=== PATIENT | male | born 1970 | race Caucasian/White ===

== ENCOUNTER 2016-08-30 21:09 | Outpatient (CLI) | payer OTHER | END 2016-08-30 21:10 | disposition short-term general hospital (02) | DX: R07.9 Chest pain, unspecified (principal); R68.84 Jaw pain | CPT/HCPCS: A0170; A0425; A0427 ==

== ENCOUNTER 2016-10-02 14:11 | Outpatient (CLI) | payer OTHER | END 2016-10-02 14:12 | disposition EMS.NT | DX: R00.0 Tachycardia, unspecified (principal) ==

== ENCOUNTER 2020-06-20 10:51 | Outpatient (CLI) | payer OTHER | END 2020-06-20 10:52 | disposition critical access hospital (66) | LOC: EMS 10:51 | PROVIDERS: ATTEND Surgery | DX: R00.0 Tachycardia, unspecified (principal); R42 Dizziness and giddiness | CPT/HCPCS: A0425; A0427 ==

== ENCOUNTER 2020-06-20 11:25 | Emergency (ER) | payer OTHER ==
[2020-06-20 12:03] LABS: BASOPHILS # (AUTO) 0.1 10^3/uL (0.0-0.1); BASOPHILS % (AUTO) 0.6 %; EOSINOPHILS # (AUTO) 0.2 10^3/uL (0.0-0.7); EOSINOPHILS % (AUTO) 1.5 %; HGB - HEMOGLOBIN 15.8 g/dL (14.0-18.0); LYMPHOCYTES # (AUTO) 3.2 10^3/uL (1.5-3.5); MEAN CORPUSCULAR HGB CONC 33.3 g/dL (32.0-36.0); MEAN CORPUSCULAR VOLUME 83.9 fL (80.0-94.0); MEAN PLATELET VOLUME 10.1 fL (7.4-11.4); MONOCYTES # (AUTO) 0.8 10^3/uL (0.0-1.0); MONOCYTES % (AUTO) 7.1 %; NEUTROPHILS # (AUTO) 7.5 10^3/uL (1.5-6.6); NEUTROPHILS % (AUTO) 63.5 %; PLT - PLATELET COUNT 275 10^3/uL (130-450); RED BLOOD COUNT 5.65 10^6/uL (4.70-6.10); RED CELL DISTRIBUTION WIDTH 13.1 % (12.0-15.0); WHITE BLOOD COUNT 11.8 x10^3/uL (4.8-10.8)
--- NOTE | 2020-06-20 12:08 | XRAY Report ---
PROCEDURE: Chest 1 View X-Ray INDICATIONS: Chest Pain TECHNIQUE: One view of the chest was acquired. COMPARISON: None. FINDINGS: Surgical changes and devices: None. Lungs and pleura: No pleural effusions or pneumothorax. Lungs are clear. Mediastinum: Mediastinal contours appear normal. Heart size is normal. Bones and chest wall: No suspicious bony lesions. Overlying soft tissues appear unremarkable. IMPRESSION: No acute cardiopulmonary disease. Reviewed by: Den Paris MD on 06/20/2020 12:07 PM [facility] Approved by: Den Paris MD on 06/20/2020 12:07 PM [facility] Station ID: [id number]
[2020-06-20 12:29] LABS: ALBUMIN/GLOBULIN RATIO 1.3 (1.0-2.2); BILIRUBIN,TOTAL 0.6 mg/dL (0.2-1.0); CALCIUM 9.5 mg/dL (8.5-10.3); CREATININE 1.1 mg/dL (0.6-1.2); TOTAL PROTEIN 7.2 g/dL (6.7-8.2)
--- NOTE | 2020-06-20 13:47 | ED Physician Documentation ---
History of Present Illness - Stated complaint Stated Complaint: HIGH HR - Chief complaint Chief Complaint: Cardiac - History obtained from History obtained from: Patient, EMS - Additonal information Additional information: 50-year-old man with past medical history of SVT presents with tachycardia from home, found to be in svt. He received adenosine 6 mg with successful conversion to sinus rhythm on route. Patient states that he woke up feeling normal and then went into what he felt was SVT while sitting at rest. He tried his own vagal maneuvers which have worked for him in the past but was unsuccessful so he called 911. Patient denies any symptoms at present, stating that he feels back to normal after getting adenosine. He also denies having symptoms prior to onset of the palpitations. Review of Systems Ten Systems: 10 systems reviewed and negative Constitutional: denies: Fever, Chills, Myalgias Eyes: denies: Loss of vision Ears: denies: Tinnitus/ringing Cardiac: reports: Palpitations. denies: Chest pain / pressure Respiratory: denies: Dyspnea, Cough GI: denies: Nausea PD PAST MEDICAL HISTORY - Past Medical History Past Medical History: Yes Cardiovascular: Hypertension, High cholesterol, Atrial fibrillation, Arrhythmia Respiratory: None Neuro: Migraines, Peripheral neuropathy Endocrine/Autoimmune: Type 2 diabetes GI: Hiatal hernia : Kidney stones HEENT: Chronic hearing loss Psych: None Musculoskeletal: Osteoarthritis, Fibromyalgia, Fatigue, Other Derm: None Other Past Medical History: DJD - Past Surgical History Past Surgical History: Yes Ortho: Arthroscopic surgery - Present Medications Home Medications: Ambulatory Orders Medication Instructions Recorded Confirmed Atorvastatin Calcium mg PO HS 06/20/20 Cyclobenzaprine [Flexeril] 10 mg PO TID PRN 06/20/20 06/20/20 Insulin Glargine [Lantus Solostar] 60 unit SQ HS 06/20/20 06/20/20 Metoprolol Succinate [Toprol Xl] mg PO BID 06/20/20 Spironolactone [Aldactone] 25 mg PO DAILY 06/20/20 06/20/20 allopurinoL [Zyloprim] 500 mg PO DAILY 06/20/20 06/20/20 metFORMIN [Glucophage] 500 mg PO BIDWM 06/20/20 06/20/20 oxyCODONE/ACET 5/325 [Percocet 5 2 each PO Q6H 06/20/20 06/20/20 mg/325 mg] - Allergies Allergies/Adverse Reactions: Allergies Allergy/AdvReac Type Severity Reaction Status Date / Time No Known Drug Allergies Allergy Verified 06/20/20 11:35 - Social History Does the pt smoke?: No Smoking Status: Former smoker Does the pt drink ETOH?: No Does the pt have substance abuse?: No - Immunizations Immunizations are current?: Yes PD ED PE NORMAL - Vitals Vital signs reviewed: Yes - General General: Alert and oriented X 3 - HEENT HEENT: Atraumatic, PERRL, EOMI, Pharynx benign - Neck Neck: Supple, no meningeal sign - Cardiac Cardiac: RRR - Respiratory Respiratory: No respiratory distress, Clear bilaterally - Abdomen Abdomen: Non tender, Non distended - Male Male : Deferred - Rectal Rectal: Deferred - Back Back: No spinal TTP - Derm Derm: Normal color - Extremities Extremities: No edema - Neuro Neuro: Alert and oriented X 3 - Psych Psych: Normal mood, Normal affect Results - Vitals Vitals: Vital Signs - 24 hr 06/20/20 06/20/20 11:35 12:12 Temperature 36.8 C Heart Rate 103 H 92 Respiratory 20 16 Rate Blood Pressure 176/119 H 138/103 H O2 Saturation 96 98 Oxygen O2 Source Room air - EKG (time done) 1129 Rate: Rate (enter#) (101) Rhythm: Sinus tachycardia - Labs Labs: Laboratory Tests 06/20/20 06/20/20 06/20/20 11:55 11:55 11:55 WBC 11.8 H RBC 5.65 Hgb 15.8 Hct 47.4 MCV 83.9 MCH 28.0 MCHC 33.3 RDW 13.1 Plt Count 275 MPV 10.1 Neut # (Auto) 7.5 H Lymph # (Auto) 3.2 [place] # (Auto) 0.8 Eos # (Auto) 0.2 Baso # (Auto) 0.1 Absolute Nucleated RBC 0.00 Nucleated RBC % 0.0 Sodium 136 Potassium 4.0 Chloride 101 Carbon Dioxide 20 L Anion Gap 15.0 H BUN 22 H Creatinine 1.1 Estimated GFR (MDRD) 70 L Glucose 269 H Calcium 9.5 Total Bilirubin 0.6 AST 25 ALT 28 Alkaline Phosphatase 74 Troponin I High Sens 5.7 Total Protein 7.2 Albumin 4.0 Globulin 3.2 Albumin/Globulin Ratio 1.3 Lipase 29 PD MEDICAL DECISION MAKING - ED course Complexity details: reviewed results, d/w patient ED course: 50-year-old man with history of SVT presented in SVT, converted to sinus rhythm by EMS. Patient now asymptomatic. Normal work-up. He will follow up with his doctor at [facility] this week. Strict return precautions given. Departure - Departure Disposition: Home, Self Care Clinical Impression: SVT (supraventricular tachycardia), Palpitations Condition: Good Instructions: Understanding Supraventricular Tachycardia SVT Comments: You were seen in the emergency department for SVT. You were given adenosine by EMS with resolution of your SVT. You Are now in a normal rhythm. Your EKG looked good. Your lab work looked good. Your chest x-ray was normal. Return to the ED for any new or worsening symptoms. Follow-up with your environmental technician and with your [facility].
[2020-06-20 13:51] VITALS: BP 134/115
== END 2020-06-20 14:03 | disposition home or self-care (01) ==
LOC: EDUNIT# → ED 11:25
DX: I47.1 Supraventricular tachycardia (principal); I10 Essential (primary) hypertension; E11.42 Type 2 diabetes mellitus with diabetic polyneuropathy; Z79.4 Long term (current) use of insulin; Z87.891 Personal history of nicotine dependence
CPT/HCPCS: 36415; 80053; 83690; 84484; 85025; 93005; 99284; 99285

== ENCOUNTER 2020-07-13 19:26 | Outpatient (CLI) | payer OTHER | END 2020-07-13 19:27 | disposition critical access hospital (66) | LOC: EMS 19:26 | PROVIDERS: ATTEND Surgery | DX: R00.0 Tachycardia, unspecified (principal); R07.89 Other chest pain; R11.0 Nausea; R61 Generalized hyperhidrosis; R06.02 Shortness of breath | CPT/HCPCS: A0425; A0427 ==

== ENCOUNTER 2020-07-13 19:59 | Emergency (ER) | payer OTHER ==
[2020-07-13] MEDS ORDERED: KETOROLAC 30 MG/ML VIAL IVP STA (20:39)
[2020-07-13 20:41] LABS: BASOPHILS # (AUTO) 0.1 10^3/uL (0.0-0.1); BASOPHILS % (AUTO) 0.6 %; EOSINOPHILS # (AUTO) 0.3 10^3/uL (0.0-0.7); EOSINOPHILS % (AUTO) 2.3 %; HGB - HEMOGLOBIN 15.3 g/dL (14.0-18.0); LYMPHOCYTES # (AUTO) 2.7 10^3/uL (1.5-3.5); LYMPHOCYTES % (AUTO) 25.4 %; MEAN CORPUSCULAR HEMOGLOBIN 28.3 pg (27.0-31.0); MEAN CORPUSCULAR HGB CONC 33.3 g/dL (32.0-36.0); MEAN PLATELET VOLUME 10.5 fL (7.4-11.4); MONOCYTES # (AUTO) 0.7 10^3/uL (0.0-1.0); MONOCYTES % (AUTO) 6.6 %; NEUTROPHILS % (AUTO) 64.8 %; PLT - PLATELET COUNT 274 10^3/uL (130-450); RED BLOOD COUNT 5.41 10^6/uL (4.70-6.10); RED CELL DISTRIBUTION WIDTH 13.2 % (12.0-15.0); WHITE BLOOD COUNT 10.7 x10^3/uL (4.8-10.8)
[2020-07-13 20:52] LABS: ALBUMIN/GLOBULIN RATIO 1.3 (1.0-2.2); BILIRUBIN,TOTAL 0.7 mg/dL (0.2-1.0); CALCIUM 9.4 mg/dL (8.5-10.3); CREATININE 1.3 mg/dL (0.6-1.2); MAGNESIUM 1.5 mg/dL (1.7-2.8); TOTAL PROTEIN 7.1 g/dL (6.7-8.2)
[2020-07-13] MEDS: ONDANSETRON 4 MG/2 ML VIAL IVP STA ×2 (20:53→20:56)
--- NOTE | 2020-07-13 21:40 | ED Physician Documentation ---
History of Present Illness - Stated complaint Stated Complaint: SVT - Chief complaint Chief Complaint: Cardiac - History obtained from History obtained from: Patient, EMS - History of Present Illness Timing: Today Pain level now: 0 Improved by: adenosine Worsened by: no exacerbating factors - Treatment prior to arrival Treatment prior to arrival: zofran, adenosine - Additonal information Additional information: BIBA. Patient called 911 tonight due to sudden onset rapid palpitations while at home at rest which he recognized as previous episodes of SVT. He tried vagal maneuvers without change in symptoms and thus called 911. Given adenosine 6mg IV rapid push followed by second dose 6mg adenosine; he had resolution of SVT with the second dose and arrives to ED with ST 100s. Also given zofran in field for nausea which has resolved. Patient says referral to cardiology is in the works but that he has not yet seen one. T+R from this ED 06/20 for similar presentation, resolved after 6mg adenosine. Rhythm strips provided from EMS (recorded during tonearnest's transport to ED) show regular, narrow-complex rhythm 184 bpm. Review of Systems Constitutional: denies: Fever, Chills, Sweats Cardiac: reports: Palpitations. denies: Chest pain / pressure, Pedal edema, Calf pain Respiratory: reports: Reviewed and negative GI: reports: Nausea, Vomiting (resolved). denies: Abdominal Pain PD PAST MEDICAL HISTORY - Past Medical History Past Medical History: Yes Cardiovascular: Hypertension, High cholesterol, Atrial fibrillation, Arrhythmia Respiratory: None Neuro: Migraines, Peripheral neuropathy Endocrine/Autoimmune: Type 2 diabetes GI: Hiatal hernia : Kidney stones HEENT: Chronic hearing loss Psych: None Musculoskeletal: Osteoarthritis, Fibromyalgia, Fatigue, Other Derm: None - Past Surgical History Past Surgical History: Yes Ortho: Arthroscopic surgery - Present Medications Home Medications: Ambulatory Orders Medication Instructions Recorded Confirmed Atorvastatin Calcium 40 mg PO HS 06/20/20 07/13/20 Cyclobenzaprine [Flexeril] 10 mg PO TID PRN 06/20/20 07/13/20 Insulin Glargine [Lantus Solostar] 60 unit SQ HS 06/20/20 07/13/20 Metoprolol Succinate [Toprol Xl] 50 mg PO BID 06/20/20 07/13/20 Spironolactone [Aldactone] 25 mg PO DAILY 06/20/20 07/13/20 allopurinoL [Zyloprim] 500 mg PO DAILY 06/20/20 07/13/20 metFORMIN [Glucophage] 500 mg PO BIDWM 06/20/20 07/13/20 oxyCODONE/ACET 5/325 [Percocet 5 2 each PO Q6H 06/20/20 07/13/20 mg/325 mg] - Allergies Allergies/Adverse Reactions: Allergies Allergy/AdvReac Type Severity Reaction Status Date / Time No Known Drug Allergies Allergy Verified 06/20/20 11:35 - Social History Does the pt smoke?: No Smoking Status: Never smoker Does the pt drink ETOH?: No Does the pt have substance abuse?: No - Immunizations Immunizations are current?: Yes - POLST Patient has POLST: No PD ED PE NORMAL - Vitals Vital signs reviewed: Yes - General General: Alert and oriented X 3, No acute distress, Well developed/nourished - HEENT HEENT: Moist mucous membranes - Neck Neck: Supple, no meningeal sign - Cardiac Cardiac: RRR, No murmur, No gallop, No rub - Respiratory Respiratory: No respiratory distress, Clear bilaterally - Abdomen Abdomen: Soft, Non tender - Extremities Extremities: No edema - Neuro Neuro: Alert and oriented X 3 Results - Vitals Vitals: Vital Signs - 24 hr 07/13/20 07/13/20 07/13/20 20:10 20:14 22:00 Temperature 37.2 C 37.2 C 36.7 C Heart Rate 107 H 110 H 98 Respiratory 16 16 16 Rate Blood Pressure 132/106 H 132/106 H 156/108 H O2 Saturation 96 96 97 Oxygen O2 Source Room air - EKG (time done) No standard instances Rate: Rate (enter#) (107) Rhythm: Sinus tachycardia, LAE [place]: Normal Intervals: Normal [place] QRS: Normal Ischemia: Normal ST segments - Labs Labs: Laboratory Tests 07/13/20 07/13/20 20:27 20:27 WBC 10.7 RBC 5.41 Hgb 15.3 Hct 46.0 MCV 85.0 MCH 28.3 MCHC 33.3 RDW 13.2 Plt Count 274 MPV 10.5 Neut # (Auto) 7.0 H Lymph # (Auto) 2.7 [place] # (Auto) 0.7 Eos # (Auto) 0.3 Baso # (Auto) 0.1 Absolute Nucleated RBC 0.00 Nucleated RBC % 0.0 Sodium 137 Potassium 3.8 Chloride 103 Carbon Dioxide 21 Anion Gap 13.0 BUN 21 H Creatinine 1.3 H Estimated GFR (MDRD) 58 L Glucose 242 H Calcium 9.4 Magnesium 1.5 L Total Bilirubin 0.7 AST 25 ALT 29 Alkaline Phosphatase 73 Total Protein 7.1 Albumin 4.0 Globulin 3.1 Albumin/Globulin Ratio 1.3 PD MEDICAL DECISION MAKING - ED course Complexity details: reviewed old records, reviewed results, re-evaluated patient, considered differential, d/w patient ED course: no imaging performed tonight, as patient had CXR as part of his w/u 06/20/20 in this ED for same presentation. He is given 800mg magnesium oxide for mild hypomagnesemia. He has mild hyperglycemia but has not yet taken his evening diabetic medication(s). He arrived initially c/o headache, given IV toradol with excellent relief of his headache. He is asymptomatic at time of discharge. Departure - Departure Disposition: 01 Home, Self Care Clinical Impression: SVT (supraventricular tachycardia), Hypomagnesemia Condition: Good Instructions: ED Tachycardia Pat PSVT Follow-Up: Braulio Lockwood MD [Primary Care Provider] - Comments: Contact your primary care provider. They might recommend recheck of your low m agnesium level (minimally elevated in emergency department). More importantly, you might benefit from seeing a tape coater, which is a cardiology subsecialist that can advise you whether or not you are a candidate for ablation (the procedure we discussed which can help some patients with recurrent SVT). Discharge Date/Time: 07/13/20 22:08
[2020-07-13] MEDS ORDERED: MAGNESIUM OXIDE 400 MG TABLET PO SCH (22:00)
[2020-07-13 22:01] VITALS: BP 156/108
== END 2020-07-13 22:08 | disposition home or self-care (01) ==
LOC: EDUNIT# → ED 19:59
DX: I47.1 Supraventricular tachycardia (principal); E83.42 Hypomagnesemia; R51.9 Headache, unspecified; R11.0 Nausea; I10 Essential (primary) hypertension; E11.42 Type 2 diabetes mellitus with diabetic polyneuropathy; Z79.4 Long term (current) use of insulin
CPT/HCPCS: 36415; 80053; 83735; 85025; 93005; 99284; A9270

== ENCOUNTER 2021-11-30 12:50 | Outpatient (CLI) | payer OTHER | END 2021-11-30 12:51 | disposition critical access hospital (66) | LOC: EMS 12:50 | DX: R10.31 Right lower quadrant pain (principal); R11.2 Nausea with vomiting, unspecified | CPT/HCPCS: A0425; A0427 ==

== ENCOUNTER 2021-11-30 13:28 | Emergency (ER) | payer OTHER ==
[2021-11-30 13:49] LABS: BASOPHILS # (AUTO) 0.1 10^3/uL (0.0-0.1); BASOPHILS % (AUTO) 0.7 %; EOSINOPHILS # (AUTO) 0.1 10^3/uL (0.0-0.7); EOSINOPHILS % (AUTO) 0.9 %; HCT - HEMATOCRIT 45.1 % (42.0-52.0); HGB - HEMOGLOBIN 14.8 g/dL (14.0-18.0); LYMPHOCYTES # (AUTO) 2.2 10^3/uL (1.5-3.5); LYMPHOCYTES % (AUTO) 17.6 %; MEAN CORPUSCULAR HGB CONC 32.8 g/dL (32.0-36.0); MEAN CORPUSCULAR VOLUME 85.3 fL (80.0-94.0); MEAN PLATELET VOLUME 10.2 fL (7.4-11.4); MONOCYTES # (AUTO) 0.6 10^3/uL (0.0-1.0); MONOCYTES % (AUTO) 4.9 %; NEUTROPHILS # (AUTO) 9.2 10^3/uL (1.5-6.6); NEUTROPHILS % (AUTO) 75.4 %; PLT - PLATELET COUNT 276 10^3/uL (130-450); RED BLOOD COUNT 5.29 10^6/uL (4.70-6.10); RED CELL DISTRIBUTION WIDTH 13.4 % (12.0-15.0); WHITE BLOOD COUNT 12.2 x10^3/uL (4.8-10.8)
[2021-11-30] MEDS ORDERED: HYDROmorphone 1 MG/ML CARPUJECT IVP STA (13:55)
[2021-11-30] MEDS ORDERED: ONDANSETRON 4 MG/2 ML VIAL IVP STA (13:55)
[2021-11-30] MEDS ORDERED: SODIUM CHLORIDE 0.9% 1,000 ML IV STA (13:55)
--- NOTE | 2021-11-30 13:58 | ED Physician Documentation ---
History of Present Illness - Stated complaint Stated Complaint: ABD PX - Chief complaint Chief Complaint: Abd Pain - Additonal information Additional information: 51-year-old male presents emergency department for evaluation of acute onset ri ght flank pain with radiation to the right lower quadrant and right groin. He does report a history of renal colic that required lithotripsy many years ago in [place]. 9 he endorses nausea and vomiting but no fevers. No dysuria or hematuria. He denies any pertinent past surgical history. Review of Systems Constitutional: reports: Reviewed and negative Throat: reports: Dental pain / toothache Cardiac: reports: Reviewed and negative Respiratory: reports: Reviewed and negative GI: reports: Abdominal Pain, Nausea, Vomiting : reports: Unable to Void Skin: reports: Reviewed and negative PD PAST MEDICAL HISTORY - Past Medical History Cardiovascular: Hypertension, High cholesterol, Atrial fibrillation, Arrhythmia Respiratory: None Neuro: Migraines, Peripheral neuropathy Endocrine/Autoimmune: Type 2 diabetes GI: Hiatal hernia : Kidney stones HEENT: Chronic hearing loss Psych: None Musculoskeletal: Osteoarthritis, Fibromyalgia, Fatigue, Other Derm: None - Past Surgical History Past Surgical History: Yes Ortho: Arthroscopic surgery - Present Medications Home Medications: Ambulatory Orders Medication Instructions Recorded Confirmed Atorvastatin Calcium 40 mg PO HS 06/20/20 07/13/20 Cyclobenzaprine [Flexeril] 10 mg PO TID PRN 06/20/20 07/13/20 Insulin Glargine [Lantus Solostar] 60 unit SQ HS 06/20/20 07/13/20 Metoprolol Succinate [Toprol Xl] 50 mg PO BID 06/20/20 07/13/20 Spironolactone [Aldactone] 25 mg PO DAILY 06/20/20 07/13/20 allopurinoL [Zyloprim] 500 mg PO DAILY 06/20/20 07/13/20 metFORMIN [Glucophage] 500 mg PO BIDWM 06/20/20 07/13/20 oxyCODONE/ACET 5/325 [Percocet 5 2 each PO Q6H 06/20/20 07/13/20 mg/325 mg] HYDROcod/ACETAM 5/325 [[place] 5/325] 1 tablet PO BID PRN #10 tablet 11/30/21 - Allergies Allergies/Adverse Reactions: Allergies Allergy/AdvReac Type Severity Reaction Status Date / Time No Known Drug Allergies Allergy Verified 11/30/21 13:41 - Social History Does the pt smoke?: No Smoking Status: Never smoker Does the pt drink ETOH?: No Does the pt have substance abuse?: No - Immunizations Immunizations are current?: Yes - POLST Patient has POLST: No PD ED PE EXPANDED - General General: Alert, No acute distress, Well developed/nourished, Other (Obese) - Cardiac Cardiac: Regular Rate, Radial strong equal - Respiratory Respiratory: Clear to ausultation mimi. No: Distress, Labored - Abdomen Abdomen: Normal Bowel sounds, Tender to palpation (Right flank and right lower quadrant tenderness palpation. No guarding is noted. Exam is limited by body habitus) - Back Back: Normal exam - Derm Derm: Normal color, Warm and dry. No: Rash - Extremities Extremities: Normal. No: Deformity, Tenderness - Neuro Neuro: Alert and Oriented X 3, CNII-XII intact - GCS Eye Opening: Spontaneous Motor: Obeys Commands Verbal: Oriented Total: 15 Results - Vitals Vitals: Vital Signs - 24 hr 11/30/21 11/30/21 11/30/21 13:35 14:20 14:27 Temperature 36.9 C Heart Rate 60 Respiratory 18 Rate Blood Pressure 180/121 H O2 Saturation 97 72 L 100 Oxygen O2 Source Nasal cannula - Labs Labs: Laboratory Tests 11/30/21 11/30/21 11/30/21 13:43 13:43 15:23 WBC 12.2 H RBC 5.29 Hgb 14.8 Hct 45.1 MCV 85.3 MCH 28.0 MCHC 32.8 RDW 13.4 Plt Count 276 MPV 10.2 Neut # (Auto) 9.2 H Lymph # (Auto) 2.2 [place] # (Auto) 0.6 Eos # (Auto) 0.1 Baso # (Auto) 0.1 Absolute Nucleated RBC 0.00 Nucleated RBC % 0.0 Sodium 139 Potassium 3.9 Chloride 104 Carbon Dioxide 21 Anion Gap 14.0 H BUN 20 Creatinine 1.3 H Estimated GFR (MDRD) 58 L Glucose 275 H Calcium 9.5 Total Bilirubin 1.1 H AST 29 ALT 35 Alkaline Phosphatase 74 Total Protein 7.4 Albumin 4.3 Globulin 3.1 Albumin/Globulin Ratio 1.4 Lipase 29 Urine Color YELLOW Urine Clarity HAZY Urine pH 6.0 Ur Specific [place] 1.025 Urine Protein TRACE Urine Glucose (UA) 500 H Urine Ketones TRACE Urine Occult Blood LARGE H Urine Nitrite NEGATIVE Urine Bilirubin NEGATIVE Urine Urobilinogen 0.2 (NORMAL) Ur Leukocyte Esterase NEGATIVE Urine RBC TNTC H Urine WBC 0-3 Ur Squamous Epith Cells RARE Squamous Urine Bacteria None Seen Ur Microscopic Review INDICATED Urine Culture Comments NOT INDICATED - Rads (name of study) CT abd Radiology: Final report received (3 to 4 mm calculus in the urinary bladder at the medial aspect of the right UVJ orifice. This presumably recently passed and the source of the right flank pain.) PD MEDICAL DECISION MAKING - ED course Complexity details: reviewed results, re-evaluated patient, considered differential, d/w patient ED course: 51-year female presents the emergency department for evaluation of acute right flank pain with radiation to the right lower quadrant. Symptoms began this AM. He did have associated nausea and vomiting. He does report a remote history of renal colic that required lithotripsy in [place] many years ago. 9 he is a diabetic. Screening labs show an elevated blood glucose as well as mildly elevated creatinine. Urine consistent with significant hematuria but no overt secondary signs of infection. CT of the abdomen confirms a 3 to 4 mm calculus in the urinary bladder likely representing a passed stone. He did have mildly dilated renal pelvis with some inflammatory changes. This is likely secondary to recently passed obstruction given that there are no findings of infection in the urine. Patient's pain was improved following Dilaudid Toradol and Zofran here in the emergency department. Findings on CT scan were discussed he will be discharged to follow-up with PCP. Given history of recurrence may benefit from referral to urology. Otherwise emergent return precautions were discussed. I am prescribing a short course of short-acting opioid pain medication for this patient. I have reviewed the patients PANEL INSTRUMENT REPAIRER and no concerning findings were noted. I have discussed that the opioids are for short term therapy only, and will not be refilled from the ED. Departure - Departure Disposition: 01 Home, Self Care Clinical Impression: Ureter colic, Bladder calculi Hematuria Qualifiers: Hematuria type: gross Qualified Code(s): R31.0 - Gross hematuria Condition: Stable Record reviewed to determine appropriate education?: Yes Instructions: ED Stone Renal W Colic Prescriptions: HYDROcod/ACETAM 5/325 [[place] 5/325] 1 tablet PO BID PRN #10 tablet PRN Reason: Pain Comments: Elfego is seen today in the emergency department for pain on your right side of your abdomen. The CT scan does show that you have likely passed a kidney stone into your bladder. This is small enough that I expect that it should not cause any further signs or obstruction. There is a fair amount of blood however in your urine which is consistent with the history of the kidney stone. I would like to discuss this ED visit with your primary care provider. Because you do have a history of previous kidney stones that required lithotripsy you would benefit from referral to a urologist for longer-term evaluation of follow- up. In general I do recommend that you take ibuprofen 600 mg with food 2-3 times a day. For severe pain I am sending a limited prescription of hydrocodone to your pharmacy. This cannot be refilled. Return to the emergency department for fevers, suddenly severe or different pain uncontrolled vomiting. I am prescribing a short course of narcotic pain medication for you. These are potentially dangerous and addictive medications that should be used carefully. These medications may constipate you. Take an [id number] stool softener (docusate) twice daily with plenty of water while taking these medications. If you go 24 hours without a bowel movement, take [id number] miralax, per package instructions. Do not drink or drive while taking these medications. If you received narcotic or sedating medications while in the emergency department, do not drive for 24 hours. Store this medication in a safe, secure place and out of reach of children. It is a violation of federal law to give or sell this medication to another person or to use in a manner other than prescribed. The ED will not refill narcotic prescriptions, including prescriptions lost or stolen. To dispose of unwanted medications: 1. [facility] at [address] in [place] has a medication drop box. They accept prescription medications (in pill form) Sunday through Sunday 9:00 a.m. to 5:00 p.m. 2. The [facility] [employer] accepts prescription medications (in pill form only) for disposal year round. Call for more information. 3. Contact the [facility] for the next [facility] sponsored prescription drug collection event. , [phone], or [phone]; Note that many narcotic pain relievers also contain Tylenol/acetaminophen. Please ensure that your total dose of acetaminophen from all sources does not exceed 3 g (3000 mg) per day.
[2021-11-30 14:03] LABS: ALBUMIN 4.3 g/dL (3.2-5.5); ALBUMIN/GLOBULIN RATIO 1.4 (1.0-2.2); BILIRUBIN,TOTAL 1.1 mg/dL (0.2-1.0); CALCIUM 9.5 mg/dL (8.5-10.3); CREATININE 1.3 mg/dL (0.6-1.2); POTASSIUM 3.9 mmol/L (3.5-5.0); TOTAL PROTEIN 7.4 g/dL (6.7-8.2)
[2021-11-30] MEDS ORDERED: INSULIN REGULAR HUMAN 100 UNIT/1 ML 10 ML MDV IVP STA (14:26)
[2021-11-30 15:38] LABS: BILIRUBIN,URINE NEGATIVE (NEGATIVE); GLUCOSE, URINE (UA) 500 mg/dL (NEGATIVE); KETONES,URINE (UA) TRACE mg/dL (NEGATIVE); LEUKOCYTE ESTERASE, URINE NEGATIVE (NEGATIVE); NITRITE,URINE NEGATIVE (NEGATIVE); OCCULT BLOOD,URINE LARGE (NEGATIVE); PROTEIN,URINE TRACE mg/dL (NEGATIVE); UROBILINOGEN,URINE 0.2 (NORMAL) E.U./dL (NORMAL)
[2021-11-30 15:40] LABS: CLARITY,URINE HAZY (CLEAR)
[2021-11-30 15:47] LABS: BACTERIA,URINE None Seen /HPF (None Seen); RBC,URINE TNTC /HPF (0-5); SQUAMOUS EPITHELIAL CELL,UR RARE Squamous (<= Few); WBC,URINE 0-3 /HPF (0-3)
--- NOTE | 2021-11-30 16:13 | CT Report ---
PROCEDURE: Abdomen/Pelvis WO INDICATIONS: RIGHT flank pain TECHNIQUE: Noncontrast 5 mm thick sections acquired from the diaphragms to the symphysis. 5 mm coronal and sagi ttal reformats were then performed. For radiation dose reduction, the following was used: automated exposure control, adjustment of mA and/or kV according to patient size. COMPARISON: None. FINDINGS: Image quality: Excellent. ABDOMEN: Lung bases: Lung bases are clear. Heart size is normal. Urinary tract: There is an approximately 3-4 mm calculus within the urinary bladder at the medial aspect of the righ t UVJ orifice (series 3 image 97). Mildly dilated right ureter to the level of the right renal pelvis which is more moderately dilated with adjacent inflammatory changes. Nonobstructing right lower pole calculus measuring 4 mm. Nonobstructing left upper pole calculus measuring 5 mm. No hydronephrosis o r hydroureter on the left. Exophytic cyst projecting inferiorly from the inferior pole of the left ki dney measuring approximately 3.5 cm. Urinary bladder is otherwise normal. Remaining solid organs: Normal unenhanced CT appearance of the liver, gallbladder, spleen, pancreas, and adrenal glands. Peritoneum and bowel: Unenhanced bowel loops demonstrate normal wall thickness and caliber. No free fluid or air. Nodes and vessels: No retroperitoneal or mesenteric adenopathy by size criteria. Aorta and inferior vena cava are normal in caliber. PELVIS: Genitourinary: Bladder wall thickness is normal. Miscellaneous: No inguinal hernias or adenopathy. Bones: No suspicious bony lesions. No vertebral body compression fractures. IMPRESSION: Approximately 3-4 mm calculus in the urinary bladder at the medial aspect of the right UVJ orifice. T his presumably recently passed and is the source of the patient's right flank pain. Dilated right extrarenal pelvis with adjacent inflammatory changes. This could be related to recent o bstruction however and a sending urinary tract infection could cause a similar appearance. Correlate with urinalysis and for costovertebral angle tenderness. Nonobstructing bilateral renal calculi. Reviewed by: Michael Torre MD on 11/30/2021 4:11 PM PDT Approved by: Michael Torre MD on 11/30/2021 4:11 PM PDT Station ID: [id number]
[2021-11-30 16:52] VITALS: BP 166/102
== END 2021-11-30 16:53 | disposition home or self-care (01) ==
LOC: EDUNIT# → ED 13:28
DX: N21.0 Calculus in bladder (principal); N23 Unspecified renal colic; I10 Essential (primary) hypertension; E11.42 Type 2 diabetes mellitus with diabetic polyneuropathy; Z79.84 Long term (current) use of oral hypoglycemic drugs; R31.0 Gross hematuria
CPT/HCPCS: 36415; 51798; 74176; 80053; 81001; 83690; 85025; 96374; 96375; 99284; J1170; 81003; 87086